=== PATIENT | male | born 1955 | race African-American/Black ===

== ENCOUNTER 2019-06-04 12:26 | Emergency (ER) | payer OTHER ==
[2019-06-04] MEDS ORDERED: Lidocaine 1% 20 ML MDV ONE (13:17)
[2019-06-04] MEDS ORDERED: Adacel (T-DAP) 0.5 ML SYRINGE ONE (13:17)
== END 2019-06-04 14:00 | disposition home or self-care (01) ==
LOC: MADERS 12:26
DX: S61.012A Laceration without foreign body of left thumb without damage to nail, initial encounter (principal); I10 Essential (primary) hypertension; X58.XXXA Exposure to other specified factors, initial encounter
CPT/HCPCS: 12001; 90471; 90715; J2001

== ENCOUNTER 2022-07-08 07:01 | Outpatient (CLI) | payer OTHER ==
[2022-07-08 07:25] LABS: #Basophils 0.1 thou/uL (0.0-0.2); #Eosinphils 0.1 thou/uL (0.0-0.7); #Lymphocytes 1.7 thou/uL (1.20-3.40); #Monocytes 0.4 thou/uL (0.11-0.59); #Neutrophils 3.4 thou/uL (1.40-6.50); %Basophils 1.8 % (0.0-1.0); %Eosinophils 1.3 % (0.0-10.0); %Lymphocytes 30.8 % (21.0-51.0); %Monocytes 6.3 % (0.0-10.0); %Neutrophils 59.8 % (42.0-75.0); Hemoglobin 13.3 g/dL (14.0-18.0); Mean Corpuscular HGB CONC 32.1 g/dL (32.0-36.0); Mean Corpuscular Hemoglobin 28.5 pg (27.0-31.0); Mean Corpuscular Volume 88.8 fl (78.0-98.0); Mean Platelet Volume 9.5 fL (7.4-10.4); Platelet Count 319 thou/uL (130-400); RBC Distribution Width 11.1 % (11.5-14.5); Red Blood Cell (RBC) Count 4.65 mill/uL (4.70-6.10); White Blood Cell (WBC) Count 5.6 thou/uL (4.8-10.8)
[2022-07-08 07:40] LABS: ALT (SGPT) 13 U/L (8-55); AST (SGOT) 15 U/L (5-34); Albumin 3.7 g/dL (3.4-4.8); Alkaline Phosphatase 101 U/L (40-110); Anion Gap 16 mmol/L (10-20); BUN (Urea Nitrogen) 37 mg/dL (8.4-25.7); Bilirubin, Total 0.4 mg/dL (0.2-1.2); Calc. Creatinine Clearance 0 mL/min (70-130); Calcium 9.7 mg/dL (7.8-10.44); Carbon Dioxide 27 mmol/L (23-31); Cardiac Risk 3.5 (Less than 4.5); Chloride 96 mmol/L (98-107); Cholesterol 99 mg/dl (< 200 Desired); Estimated GFR 39; Globulin 3.9 g/dL (2.4-3.5); Glucose 325 mg/dL (80-115); HDL Cholesterol 28 mg/dL (>60 Neg Risk); LDL Cholesterol, Calculated 29 mg/dL; Potassium 3.5 mmol/L (3.5-5.1); Protein, Total 7.6 g/dL (5.8-8.1); Sodium 135 mmol/L (136-145); Triglycerides 212 mg/dL (Less than 150)
== END 2022-07-08 07:02 | disposition home or self-care (01) ==
LOC: MADLAB 07:01
PROVIDERS: ATTEND Family Medicine
DX: E78.5 Hyperlipidemia, unspecified (principal); E11.9 Type 2 diabetes mellitus without complications; I10 Essential (primary) hypertension
CPT/HCPCS: 36415; 80053; 80061; 84443; 85025

== ENCOUNTER 2022-07-29 07:29 | Emergency (ER) | payer MEDICARE, SELFPAY ==
[2022-07-29] MEDS ORDERED: Dexamethasone 4 MG TAB ONE (08:19)
[2022-07-29] MEDS ORDERED: Ibuprofen 600 MG TAB ONE (08:19)
[2022-07-29 08:38] LABS: Bilirubin Negative (Negative); Blood, Urine Trace (Negative); Clarity Clear (Clear); Glucose, Urine (Dipstick) Negative (Negative); Ketone, Urine Negative (Negative); Leukocyte Negative (Negative); Nitrite Negative (Negative); Protein, Urine (Dipstick) 100 mg/dL (Neg-Trace); Specific Gravity, Urine 1.025 (1.005-1.030); Urobilinogen 0.2 mg/dL (Less than 2); pH, Urine 5.5 (5.0-9.0)
[2022-07-29 08:39] LABS: Bacteria/HPF None Seen HPF (None Seen); RBC/HPF 0-3 HPF (0-3); Squamous Epithelial 0-3 HPF (0-3); WBC/HPF 0-3 HPF (0-3)
[2022-07-29] MEDS ORDERED: Morphine 4 MG/ML VIAL ONE (09:05)
[2022-07-29] MEDS ORDERED: Ondansetron ODT 4 MG TAB ONE (09:05)
== END 2022-07-29 09:26 | disposition home or self-care (01) ==
LOC: MADERS 07:29
DX: M54.31 Sciatica, right side (principal); E11.9 Type 2 diabetes mellitus without complications; Z79.4 Long term (current) use of insulin; Z79.84 Long term (current) use of oral hypoglycemic drugs; K21.9 Gastro-esophageal reflux disease without esophagitis; E78.00 Pure hypercholesterolemia, unspecified; I10 Essential (primary) hypertension; Z79.899 Other long term (current) drug therapy
CPT/HCPCS: 81003; 81015; 96372; 99283; J2270; J8540; Q0162